=== PATIENT | male | born 1950 | race Caucasian/White ===

== ENCOUNTER 2024-09-28 15:08 | Emergency (ER) | payer OTHER, MEDICARE, SELFPAY ==
[2024-09-28 15:16] VITALS: BP 141/84; PULSE 83; RESP 20; TEMP 36.8; O2SAT 99; BMI 25.7
--- NOTE | 2024-09-28 15:20 | CTR_ITS ---
PROCEDURE INFORMATION: Exam: CT Chest With Contrast; Diagnostic Exam date and time: 09/28/2024 4:09 PM Age: 74 years old Clinical indication: Injury or trauma; Other: Hit in RT ribs by gate; Ruq; Blunt trauma (contusions or hematomas) TECHNIQUE: Imaging protocol: Diagnostic computed tomography of the chest with contrast. Radiation optimization: All CT scans at this facility use at least one of these dose optimization techniques: automated exposure control; mA and/or kV adjustment per patient size (includes targeted exams where dose is matched to clinical indication); or iterative reconstruction. Contrast material: OMNI 350; Contrast volume: 100 ml; Contrast route: INTRAVENOUS (IV); COMPARISON: CR XR chest 1V portable [id number] 09/28/2024 3:39 PM RADIATION DOSE METRICS: Total DLP (mGy-cm): 1617.86 FINDINGS: Lungs: There are hypoventilatory changes at each lung base. There is an old calcified granuloma in the right middle lobe. Pleural spaces: No evidence of a pneumothorax or pleural effusion on either side. Heart: Borderline cardiomegaly. No pericardial effusion. Coronary arteries: There is calcified coronary artery disease. Lymph nodes: Unremarkable. No enlarged lymph nodes. Vasculature: Unremarkable. No aortic aneurysm. Bones/joints: There are displaced nonsegmental fractures through the anterior right 5th and 6th ribs. There is a nondisplaced nonsegmental fracture through the anterior right 7th rib. There is a comminuted and partially displaced posterior left 11th rib fracture. Soft tissues: There is wispy hematoma projecting over the right lower chest. PROCEDURE INFORMATION: Exam: CT Abdomen And Pelvis With Contrast Exam date and time: 09/28/2024 4:09 PM Age: 74 years old Clinical indication: Injury or trauma; Other: Hit in RT ribs by gate; Ruq; Blunt trauma (contusions or hematomas) TECHNIQUE: Imaging protocol: Computed tomography of the abdomen and pelvis with contrast. Radiation optimization: All CT scans at this facility use at least one of these dose optimization techniques: automated exposure control; mA and/or kV adjustment per patient size (includes targeted exams where dose is matched to clinical indication); or iterative reconstruction. Contrast material: OMNI 350; Contrast volume: 100 ml; Contrast route: INTRAVENOUS (IV); COMPARISON: CR XR chest 1V portable [id number] 09/28/2024 3:39 PM RADIATION DOSE METRICS: Total DLP (mGy-cm): 1617.86 FINDINGS: Liver: Mild fatty infiltration of the liver. No traumatic liver lesion is identified. Gallbladder and biliary ducts: Normal. No calcified stones. No ductal dilation. Pancreas: Normal. No ductal dilation. Spleen: Normal. No splenomegaly. Adrenal glands: Normal. No mass. Kidneys and ureters: Normal. No hydronephrosis. Stomach and bowel: Unremarkable. No obstruction. No mucosal thickening. Appendix: No evidence of appendicitis. Intraperitoneal space: Unremarkable. No free air. No significant fluid collection. Vasculature: Unremarkable. No abdominal aortic aneurysm. Lymph nodes: Unremarkable. No enlarged lymph nodes. Urinary bladder: Unremarkable as visualized. Reproductive: Unremarkable as visualized. Bones/joints: Please see separately dictated CT chest report describing right-sided rib fractures. There is a comminuted/partially displaced posterior left 11th rib fracture. Soft tissues: Fat containing periumbilical hernia. CT/CT chest abdpel w/*[id number] IMPRESSION: 1. Wispy hematoma in the subcutaneous fat overlying the right lower chest. 2. Displaced and non displaced rib fractures involving the right 5th, 6th and 7th ribs as well as the posterior left 11th rib. IMPRESSION: 1. No CT evidence of acute intra-abdominal pathology. 2. Comminuted/partially displaced posterior left 11th rib fracture. 3. Please see separately dictated CT chest report, same day.
--- NOTE | 2024-09-28 15:20 | XR_ITS ---
WS: [id number] Exam: XR chest 1V portable [id number] Date/Time of Exam: 09/28/2024 3:44 PM Reason For Exam: trauma No priors. The lungs are fully expanded and clear. Probable mild cardiac enlargement. No pleural effusions. The mediastinum is normal in contour. There may be a nondisplaced hairline fracture of the LEFT ninth rib . This is an equivocal finding. XR/XR chest 1V portable [id number] IMPRESSION: 1. No acute cardiopulmonary finding. 2. Probable mild cardiac enlargement. 3. Questionable hairline fracture of the lateral LEFT ninth rib.
--- NOTE | 2024-09-28 15:23 | ED_ITS ---
HPI - Chest Pain General: Chief Complaint: Trauma Stated Complaint: rib pain, CP, Tractor accident Time Seen by Provider: 09/28/24 15:15 Source: patient Mode of arrival: ambulatory Limitations: no limitations History of Present Illness: 74-year-old male states that he he got s mashed between a gate and fence by a cow. He states that he is having pain to his right ribs and right upper abdomen states pain is very sharp in nature worse with cough and deep breaths. He denies any other injury rates that pain an 8 out of 10 currently. Associated symptoms: Reports abdominal pain; Deny dyspnea, fever(s), nausea or vomiting Related Data Previous Rx's Medication Instructions Recorded hydrocodone 5 mg-acetaminophen 325 1 tab PO Q6H PRN pain #14 tabs 09/28/24 mg tablet Allergies Allergy/AdvReac Type Severity Reaction Status Date / Time No Known Allergies Allergy Verified 09/28/24 15:25 Review of Systems Const: Denies: fever(s), chills, body aches or change in appetite ENMT: Denies: throat pain or dental pain Card: Reports: chest pain Resp: Denies: dyspnea GI: Reports: abdominal pain; Denies: nausea, vomiting or diarrhea Musc: Denies: neck pain or back pain Skin/Breast: Denies: rash Neuro: Denies: headache(s) Physical Exam Const: COMMON NORMALS: no acute distress, patient oriented x3 and healthy appearing HENMT: COMMON NORMALS: normocephalic and atraumatic HEAD & SCALP: normocephalic and atraumatic Neck/C-Spine: COMMON NORMALS: full ROM and supple Chest: COMMONS NORMALS: normal inspection of the chest OTHER: Tenderness over right lower chest does have some bruising Resp: COMMON NORMALS: normal respiratory effort, No retractions, No use of accessory muscles and clear to auscultation bilaterally AUSCULTATION: clear to auscultation bilaterally Cardio: COMMON NORMALS: regular rate, regular rhythm and No murmurs present (Cardio) RATE: regular rate RHYTHM: regular rhythm GI: COMMON NORMALS: Normal to inspection, nondistended, normoactive bowel sounds present, Soft to palpation and no masses PALPATION: Yes Soft to palpation OTHER: Right upper quadrant tenderness Extremity: COMMON NORMALS: normal to inspection and full ROM Neuro: COMMON NORMALS: patient oriented x3, moves all extremities and no focal motor deficits Psych: COMMON NORMALS: mental status grossly normal, Normal thought process present and cooperative THOUGHT PROCESS: Normal thought process present Skin: COMMON NORMALS: no rashes or lesions noted and no wounds GENERAL SKIN EXAM: no rashes or lesions noted Course Vital Signs: Vital signs: Vital Signs Temperature 98.2 F 09/28/24 15:16 Pulse Rate 86 09/28/24 16:50 Respiratory Rate 16 09/28/24 16:50 Blood Pressure 154/104 09/28/24 16:50 Pulse Oximetry 96 09/28/24 16:50 Oxygen Delivery Me thod Room Air 09/28/24 16:50 MDM - Chest Pain Medical Decision Making Patient presents here with rib fractures he is well-appearing here no respiratory distress CT of his abdomen was normal we will have him do incentive spirometer at home will prescribe him pain meds he is to follow-up with PCP and return if worsening he understands agrees to plan. Medical Records I reviewed the patient's medical records. Lab Data Radiology Impressions Chest X-Ray 09/28/24 15:20 IMPRESSION: 1. No acute cardiopulmonary finding. 2. Probable mild cardiac enlargement. 3. Questionable hairline fracture of the lateral LEFT ninth rib. Chest/Abdomen/Pelvis CT 09/28/24 15:20 IMPRESSION: 1. Wispy hematoma in the subcutaneous fat overlying the right lower chest. 2. Displaced and non displaced rib fractures involving the right 5th, 6th and 7th ribs as well as the posterior left 11th rib. IMPRESSION: 1. No CT evidence of acute intra-abdominal pathology. 2. Comminuted/partially displaced posterior left 11th rib fracture. 3. Please see separately dictated CT chest report, same day. All radiology interpretation(s) finalized by discharge Discharge Plan Discharge Patient Disposition: Home Clinical Impression: Fracture, ribs Qualifiers: Encounter type: initial encounter Fracture type: closed Laterality: right Qualified Code(s): S22.41XA - Multiple fractures of ribs, right side, initial encounter for closed fracture Condition: Stable Prescriptions: New hydrocodone-acetaminophen 5-325 mg tablet 1 tab PO Q6H PRN (Reason: pain) Qty: 14 0RF Discharge Orders: Discharge ED (Routine); Ordered 09/28/24 Ordered By: Bob Hoyt Discharge Diet: Advance as tolerated Discharge Activity: Resume usual activity Patient Instructions: Rib Fracture (ED) Coding Level of Care Code ED Photogrammetric Compilation Specialist for Crystal Aguayo
--- NOTE | 2024-09-28 15:45 | PC.PHAR ---
patient is [place], sent fax at 345pm will follow up casie
[2024-09-28 15:47] VITALS: RESP 17
[2024-09-28] MEDS: morphine 4 mg/mL SDV 1 mL IVP (15:47)
[2024-09-28] MEDS: ondansetron 2 mg/ML SDV 2 mL 4 MG IVP (15:48)
[2024-09-28] MEDS: iohexol 350 mg/mL 500 mL Btl (per mL) IV (16:10)
[2024-09-28 16:50] VITALS: BP 154/104; PULSE 86; RESP 16; O2SAT 96
== END 2024-09-28 17:55 | disposition home or self-care (01) ==
PROVIDERS: Emergency Provider Emergency Medicine
DX: S22.41XA Multiple fractures of ribs, right side, initial encounter for closed fracture (principal); W23.0XXA Caught, crushed, jammed, or pinched between moving objects, initial encounter
CPT/HCPCS: 71045; 71260; 74177; 96374; 96375; 99285; J2270; J2405